=== PATIENT | male | born 1975 | race Hispanic/Latino ===

== ENCOUNTER 2020-08-20 20:28 | Emergency (ER) | payer BC ==
--- OUTSIDE RECORDS SUMMARY | 2020-08-20 20:31 | XMS REPORT | Continuity of Care Document ---
:1975 Author Organization [employer] Care Team Providers Name Role Phone [facility] Information [employer] Unavailable Un available Problems Problem Status Onset Classification Date Comments Sourc e Date Reported CERVICAL Active [place] [facility]ENOSIS [facility] M54.12 - Active [facility] "RADICULOPAT 7 [place] HY, CERVICAL REGION Obesity Active Problem 09/03/2017 [facility] (disorder) Neuro,[facility] Pain Active Problem 09/03/2017 [facility] (finding) [facility] Spinal Active Problem 09/03/2017 [facility] stenosis in Neuro, cervical [place] region Medical (disorder) Center Medications Medication Details Route Status Patient Ordering Order Source Instructions Provider Date Famotidine 20 MG 20 mg = 1 tab, Active 01/28[facility] Oral Tablet PO, BID, # 60 2017 Medica l [Pepcid] tab, 0 Refill(s) Center {21 See Active 01/28[facility] (Methylprednisolo Instructions, 2017 Medical ne 4 MG Oral PO, Take by [place] Tablet [Medrol]) mouth as } Pack [Medrol directed on Dosepak] label., # 1 Pack, 0 Refill(s) magnesium citrate 8.725 gm = 150 Active 01/28[facility] 58.2 MG/ML Oral ml, PO, ONCE, # 2017 Medical Solution 300 ml, 0 Center Refill(s) Cyclobenzaprine 10 mg = 1 tab, Active 01/28/ H [place] hydrochloride 10 PO, TID, X 14 2017 edical MG Oral Tablet day, # 42 tab, 0 Center [Flexeril] Refill(s) Docusate Sodium 100 mg = 1 cap, Active 01/28[facility] [place] 100 MG Oral PO, BID, PRN 2017 Medical Capsule [Colace] Constipation, # Center 60 cap, 0 Refill(s) ceFAZolin + Notes: (Same As: No Longer H [place] sodium chloride Ancef, Kefzol) Active 2016 M edical 0.9% INJ 100 mL Cefazolin FOR Center IV SET ONLY MEDICATION WASTE Product Size: 1000 mg Product Wasted: ___ mg dexamethasone Notes: No Longer [place] Concentration: Active 2017 Medical 4mg/ml Center Dexamethasone 4 mg, Route: Inactive [place] IVP, Q6H, Dosing 2016 Medical Weight 93.182, Center kg, Start date: 01/27/17 12:00:00 CDT, Duration: 1 day, Stop date: 01/28/17 6:00:00 CDT Naloxone 0.4 mg, Route: [place] IVP, Q2MIN, 2016 Medical Dosing Weight Center 93.182, kg, PRN Narcotic Reversal, Start date: 01/27/17 12:00:00 CDT, Duration: 8 doses or times, Stop date: Limited # of times Ondansetron 4 mg, Route: Inactive [place] IVP, ONCE, 2016 Medical Dosing Weight Center 93.182, kg, PRN Nausea & Vomiting, Start date: 01/27/17 12:00:00 CDT Oxycodone 5 mg, Route: PO, Inactive [place] Drug form: LIQ, 2017 Medical Q4H, Dosing Center Weight 93.182, kg, PRN Pain Score 7-10, Start date: 01/27/17 12:00:00 CDT, Duration: 30 day, Stop date: 02/26/17 11:59:00 CDT Labetalol 10 mg, Route: [place] IVP, Q5Min, 2016 Medical Dosing Weight Center 93.182, kg, PRN Elevated BP, Start date: 01/27/17 12:00:00 CDT, Duration: 5 doses or times, Stop date: Limited # of times esmolol 10 mg, Route: Inactive [place] IVP, Q5Min, 2016 Medical Dosing Weight Center 93.182, kg, PRN Other -See Comment, Start date: 01/27/17 12:00:00 CDT, Duration: 5 doses or times, Stop date: Limited # of times Hydralazine 10 mg, Route: [place]active [place] IVP, Q20Min, 2016 Medical Dosing Weight Center 93.182, kg, PRN Elevated BP, Start date: 01/27/17 12:00:00 CDT, Duration: 2 doses or times, Stop date: Limited # of times Hydromorphone 0.5 mg, Route: Inactive [place] IVP, Q5Min, 2016 Medical Dosing Weight Center 93.182, kg, PRN Pain Score 7-10, Start date: 01/27/17 12:00:00 CDT, Duration: 4 doses or times, Stop date: Limited # of times Metoprolol 1 mg, Route: [place] IVP, Q5Min, 2016 Medical Dosing Weight Center 93.182, kg, PRN Other -See Comment, Start date: 01/27/17 12:00:00 CDT, Duration: 5 doses or times, Stop date: Limited # of times Flumazenil 0.2 mg, Route: Inactive [place] IVP, PRN, Dosing 2017 Medical Weight 93.182, Center kg, PRN Benzodiazepine Reversal, Initial dose, Start date: 01/27/17 12:00:00 CDT, Duration: 30 day, Stop date: 02/26/17 11:59:00 CDT neostigmine Route: IV, Drug Inactive [facility] (ANES) form: INJ, ONCE, 2016 Medical Stop date: [place] 01/27/17 11:57:00 CDT ondansetron Route: IV, Drug Inactive [facility] (ANES) form: INJ, ONCE, 2016 Medical Stop date: [place] 01/27/17 11:57:00 CDT glycopyrrolate Route: IV, Drug Inactive [facility] (ANES) form: INJ, ONCE, 2016 Medical Stop date: [place] 01/27/17 11:57:00 CDT propofol (ANES) Route: IV, Drug Inactive [facility] form: INJ, ONCE, 2016 Medical Stop date: [place] 01/27/17 11:06:00 CDT ceFAZolin (ANES) Route: IV, Drug Inactive [facility] form: INJ, ONCE, 2016 Medical Stop date: [place] 01/27/17 11:06:00 CDT fentaNYL (ANES) Route: IV, Drug Inactive [place] form: INJ, ONCE, 2016 Medical Stop date: [place] 01/27/17 11:06:00 CDT dexamethasone Route: IV, Drug Inactive [facility] [place] (ANES) form: INJ, ONCE, 2016 Medical Stop date: [place] 01/27/17 11:06:00 CDT rocuronium (ANES) Route: IV, Drug Inactive 01/27 [place] form: INJ, ONCE, 2016 Medical Stop date: [place] 01/27/17 11:06:00 CDT lidocaine (ANES) Route: IV, Drug Inactive [place] form: INJ, ONCE, 2016 Medical Stop date: [place] 01/27/17 11:06:00 CDT midazolam (ANES) Route: IV, Drug Inactive [place] form: SOLN, 2016 Medical ONCE, Stop date: [place] 01/27/17 10:56:00 CDT acetaminophen Route: IV, Drug Inactive [facility] [place]eta (ANES) (ANES) form: INJ, Start 2016 edical date: 01/27/17 [place] 10:43:00 CDT, Stop date: 01/27/17 11:43:00 CDT LR 1000 mL INJ Route: IV, Total Inactive [place] (ANES) Volume: 1,000, 2016 Medical Start date: [place] 01/27/17 10:23:00 CDT, Stop date: 01/27/17 11:23:00 CDT Flexeril Notes: (Same As: No Longer [place] Flexeril) Active 2017 [facility] Robaxin 500 mg, Route: Inactive [place] PO, Drug form: 2017 Medical TAB, TID, Dosing Center Weight 93.182, kg, Start date: 01/27/17 9:00:00 CDT, Duration: 30 day, Stop date: 02/25/17 17:00:00 CDT Famotidine Notes: (Same as: No Longer [place] Pepcid) Can be Active 2017 Medical [facility] in 5-10 Center NS IVP: Slow IV push over at least 2 minutes. Docusate Sodium Notes: (Same as: No Longer 01/27 [place] 100 MG Oral Colace) (Do Not Active 2017 Medi lina Capsule Crush) Center Cefazolin /= 70kg, Start Inactive [place] as date: 01/27/172016 Medical 9:00:00 CDT, Center Duration: 1 day, Stop date: 01/28/17 1:00:00 CDT Dextrose 50% 12.5 gm, 25 mL, No Longer [facility] Syringe Route: IVP, Drug Active 2016 Medical Form: INJ, Center Dosing Weight 93.182, kg, PRN, PRN Blood Glucose Results, Start date: 01/27/17 8:54:00 CDT, Duration: 30 day, Stop date: 02/26/17 8:53:00 CDT Glucagon 1 mg, Route: IM, No Longer [place] Drug form: Active 2016 Medical PDR/INJ, PRN, [place] Dosing Weight 93.182, kg, PRN Blood Glucose Results, Start date: 01/27/17 8:54:00 CDT, Duration: 30 day, Stop date: 02/26/17 8:53:00 CDT Insulin regular 60 units) No Longer [place] WASTE: F/P - Active 2016 Medical Black; E - [place] Municipal Trash Bin Stable for 28 days at room temperature Expires in days from Da te phenol 5 MG/ML Notes: No Longer [facility] s Mucosal [place] Chloraseptic Active 2016 Medic al [place] (Same as: [place] Chloraseptic, Sore Throat [place]) WASTE: F/P - Black; E - Municipal Trash [facility] Acetaminophen 325 Notes: Do not No Longer [place] MG / Hydrocodone exceed 4gm/day Active 2017 Medical Bitartrate 10 MG of [place] Oral Tablet acetaminophen. [[place] 10/325] (Same as: [place] 325/10) Ondansetron Notes: (Same as: No Longer [facility] Zofran) Active 2017 Medical MEDICATION WASTE Center Product Size: 4 mg Product Wasted: ___ mg Sodium Chloride 1,000 mL, Rate: No Longer [place] 0.154 MEQ/ML 50 ml/hr, Infuse Active 2016 Me dical Injectable over: 20 hr, [place] Solution Route: IV, Dosing Weight 93.182 kg, Total Volume: 1,000, Start date: 01/27/17 8:51:00 CDT, Duration: 30 day, Stop date: 02/26/17 8:50:00 CDT Morphine Notes: (Same No Longer [facility] as:MORPhine Active [address] [place] [address] Sulfate) Center ceFAZolin Notes: Same as: No Longer [place] Ancef Active [address] [place] [address] bupivacaine Notes: (Same as: No Longer [facility] liposome Exparel) Active [address] [place] [address] NOT FOR IV Center use Postoperative analgesia: Infiltration (local): Dose is based on surgical site and volume required to cover the area (in general, the maximum total dose is 266 mg). Bunionectomy: 7 mL into the tissues surrounding the osteotomy and 1 mL into the subcutaneous tissue of the surgical site (total dose = 8 mL [106 mg]) Hemorrhoidectomy : 30 mL (20 mL vial diluted with 10 mL NS) divided and administered as 6 injections of 5 mL each (total dose = 30 mL [266 mg]) Fish Oil PO, Daily, 0 Active 01/26[facility] Refill(s) [address] [place] [address] Vitamin D3 CHEW, Daily, 0 Active 01/26[facility] Joao as Refill(s) [address] [place] [address] multivitamin Daily, 0 Active 01/26[facility] Refill(s) [address] [place] [address] Allergies, Adverse Reactions, Alerts Substance Category Reaction Severity Reaction Status Date Comments S ource type Reported sulfa drugs Assertion Drug Active Mi kennedy allergy Neuro Immunizations No Data Provided for This Section Results Order Name Results Value Reference Date Interpretation Comments Lizeth rce Range ELECTROLYTE AGAP 13.0 10.0 - 05/ [facility] S 20.0 [facility] ELECTROLYTE eGFR 114 01/26 Result [facility] S Comment: The Medical eGFR is Center calculated using the CKD-EPI formula. In most young, healthy individuals the eGFR will be >90 mL/min/1.73m2 . The eGFR declines with age. An eGFR of 60-89 may be normal in some populations, particularly the elderly, for whom the CKD-EPI formula has not been extensively validated. Use of the eGFR is not recommended in the following populations:< br/>
Emily viduals with unstable creatinine concentration s, including patients and those with serious co-morbid conditions.<b r/>
Patie nts with extremes in muscle mass or diet.

The data above are obtained from the National Kidney Disease Education Program (NKDEP) which additionally recommends that when the eGFR is used in patients with extremes of body mass index for purposes of drug dosing, the eGFR should be multiplied by the estimated BMI. ELECTROLYTE Calcium Lvl 9.6 8.5 - 10.5 01/26 [facility] xa [facility] ELECTROLYTE CO2 29 24 - 32 05 [facility] ELECTROLYTE Creatinine 0.72 0.50 - 01/26 [facility] S Lvl 1.40 /2016 [facility] ELECTROLYTE BUN 11 7 - 22 01/26 [facility] ELECTROLYTE Glucose Lvl 82 70 - 99 01/26 [facility] ELECTROLYTE Sodium Lvl 137 135 - 145 01/26 [facility] ELECTROLYTE Chloride Lvl 99 95 - 109 01/26 [facility] ELECTROLYTE Potassium 4.0 3.5 - 5.1 01/26 [facility] S Lvl [facility] HEMATOLOGY Eosinophils 1.1 0.0 - 4.0 / [facility] HEMATOLOGY Monocytes 10.0 2.0 - 12.0 / [facility] HEMATOLOGY Lymphocytes 39.5 20.0 - 01/26 [facility] 40.0 [facility] HEMATOLOGY Eosinophils 0.1 0.0 - 0.5 / [facility] # [facility] HEMATOLOGY Monocytes # 0.7 0.0 - 0.8 01/26 [facility] s [facility] HEMATOLOGY Lymphocytes 2.6 1.0 - 5.5 / [facility] HEMATOLOGY Segs-Bands # 3.2 1.5 - 8.1 01/26 [facility] HEMATOLOGY Basophils 0.6 0.0 - 1.0 / [facility] HEMATOLOGY Segs 48.8 45.0 - / [facility] 75.0 [facility] HEMATOLOGY Coag Index 0.7 -3.0-3.0 - / [facility] 3.0 [facility] HEMATOLOGY Max Amp 58.5 50.0 - 05/ [place] 70.0 [facility] HEMATOLOGY TEG Data See Note 01/26 [facility] (01/26/17 1:35 PM) [facility] HEMATOLOGY G-value 7.0 4.5 - 11.0 01/26 [facility] HEMATOLOGY Ly30 0.1 0.0 - 7.5 01/26 [facility] HEMATOLOGY R-time 5.0 5.0 - 10.0 01/26 [facility] HEMATOLOGY Angle 67.8 53.0 - 01/26 [place] 72.0 [facility] HEMATOLOGY K-time 1.6 1.0 - 3.0 01/26 [facility] HEMATOLOGY TEG Interp Thromboelas 01/26 Joao as togra Medical results are Center essentially within reference ranges. CPT:03652 HEMATOLOGY MPV 9.7 7.4 - 10.4 01/26 [facility] HEMATOLOGY MCH 30.9 27.0 - 01/26 31.0 [facility] HEMATOLOGY MCV 89.6 80.0 - 01/26 94.0 [facility] HEMATOLOGY Hct 49.0 42.0 - 01/26 [place] 54.0 [facility] HEMATOLOGY Platelet 176 133 - 450 01/26 [facility] HEMATOLOGY RDW 13.2 11.5 - 01/26 14.5 [facility] HEMATOLOGY MCHC 34.5 32.0 - 01/26 36.0 [facility] HEMATOLOGY Hgb 16.9 14.0 - 01/26 18.0 [facility] HEMATOLOGY WBC 6.6 3.7 - 10.4 01/26 [facility] HEMATOLOGY RBC 5.47 4.70 - 01/26 [place] 6.10 [facility] SPECIAL Hgb A1C 5.6 <=5.6 % 01/26 [facility] CHEMISTRY [facility] Pathology Reports No Data Provided for This Section Diagnostic Reports Report Value Date Source Spine cervical wo PROCEDURE: CERVICAL SPINE MAGNETIC RESON ANCE IMAGING 01/11/2017 [facility] contrast MRI CLINICAL INDICATION: M54.2. Cervicalgia. COMPARISON: None. TECHNIQUE: Unenhanced axial and sagittal MR images of the cervical spine were performed. FINDINGS: There is straighte harley of the normal cervical lordosis. There is slight curvature of the cervical spine. The marrow signal is within normal limits. There is no significant disc space narrowing. The discs are hydrated. The cervical spinal cord dem onstrates normal signal intensity without a demonstrable lesion, myelomalacia or syrinx. There is no significant abnormality of the visualized cervical soft tissues. Craniocervical junction: No significant abnormality. No cerebellar tonsillar herniation. C2-C3: Facet arthropathy. Mi ld thickening of the ligamentum flavum. Severe right foraminal narrowing. Moderate left foraminal narrowing. No significant spinal stenosis. C3-C4: Broad-based posterior disc bulge/protrusion measuring a maximal AP dimension of approximately 2 mm. Uncal vertebral joint hypertrophy. Facet arthropathy. Moderate to severe bilateral foraminal na rrowing most pronounced medially. Mild spinal st enosis. C4-C5: Posterior central and bilateral paracentral disc protrusion most pronounced centrally and in the right paracentral region measuring a maximal AP dimension of approximately 4 mm with an annular fi ssure indenting and slightly deforming the cervical spinal cord. Uncal vertebral joint hypertrophy. Facet arthropathy. Severe right foraminal narrowing. Moderate left foraminal narrowing. Moderate spinal stenosis. C5-C6: Broad-based posterior disc bulge/protrusion more pronounced on the right measuring a maximal AP dimension of approximately 3 to 4 mm with an annular fissure. Uncal vertebral joint hypertrophy. Mo derate to severe right edson inal narrowing most pronounced medially. Moderate narrowing of the medial aspect of the left neural foramen. Moderate spinal stenosis. C6-C7: Right posterior parac entral disc protrusion measuring a maximal AP dimension of approximately 3 mm with inferior disc extrusion adjacent to the posterior margin of C7 measuring approximately 3 mm superior to inferior by 3 m m AP. Mild to moderate right foraminal narrowing most pronounced medially. Mild left foraminal narrowing. Mild spinal stenosis. C7-T1: Posterior central and right paracentral disc protrusion measuring a maximal AP dimension of approximately 3 mm. Facet arthropathy. Mild bilateral foraminal narrowing. Mild spinal stenosis. IMPRESSION: 1. Straightening of the norm al lordosis and slight curvature of the cervical spine. 2. Multilevel posterior disc bulging/protrusions, uncal vertebral joint hypertrophy, facet arthropathy, foraminal narrowing and spinal stenosis as described above. There is a right posterior paracentral inferior disc extrusion at C6-C7. 3. The cervical spinal cord demonstrates normal signal intensity. SL: 15 Consultation Notes No Data Provided for This Section Discharge Summaries No Data Provided for This Section History and Physicals No Data Provided for This Section Vital Signs Vital Sign Value Date Comments Source Respitory Rate 18 01/28/2017 [facility] Temperature Oral (F) 97.9 F 01/28/2017 [facility] Heart Rate 93 01/28/[address] [facility] Center Systolic (mm Hg) 128 01/28/2017 [facility] dical Center Diastolic (mm Hg) 85 01/28/2017 [facility] Temperature Oral (F) 97.5 F 01/28/2017 [facility] Systolic (mm Hg) 136 01/28/2017 [facility] dical Center Diastolic (mm Hg) 82 01/28/2017 [facility] Respitory Rate 16 01/28/2017 [facility] Heart Rate 92 01/28/2017 [facility] Respitory Rate 18 01/28/2017 [facility] Systolic (mm Hg) 135 01/28/2017 [facility] dical Center Diastolic (mm Hg) 76 01/28/2017 [facility] Temperature Oral (F) 98.0 F 01/28/2017 [facility] Heart Rate 96 01/28/2017 [facility] Weight 93.182 01/27/2017 [facility] Weight 93.182 01/27/2017 [facility] Height 172.72 cm 01/27/2017 [facility] BMI Calculated 31.24 01/27/2017 [facility] BMI Calculated 31.54 01/26/2017 [facility] Weight 94.091 01/26/2017 [facility] Height 172.72 cm 01/26/2017 [facility] Encounters Location Location Encounter Encounter Reason Attending ADM DC Stat us Source Details Type Number For Provider Date Date Visit [facility] Outpt Diag [id number] Jimmy 01/11 01/12 [facility] Iman Mosher [facility]2016 [facility] [id number] MICKEY BENSON 01/19 [facility] [place] [facility] [id number] MICKEY BENSON 01/27 Act zaida [facility] Bedded [id number] Mickey Benson 01/27 01/28 [facility] Outpatient /2016 [facility] Outpatient [id number] OLLIE 02/10 [facility] [place] [facility] [id number] MICKEY CANDACE 05/09 Act zaida [facility] [id number] MICKEY BENSON 08/15 Act zaida [facility] [id number] Mickey Benson 08/15 08/15 [facility] Pre[facility]Reg /2016 [facility] Phone [id number] 08/30 09/01 [facility] Message /2016 Neuro Procedures Procedure Code Date Perfomer Comments Source Fusion of joint of [id number] 01/27/2017 [facility] cervical spine with internal fixation by anterior approach [facility] [id number] [facility] [id number] [facility] Assessment and Plan No Data Provided for This Section Plan of Care No Data Provided for This Section Social History Social History Date Source Social History TypeResponse 05/09/2017 [facility] Smoking Status Never smoker; Type: Cigars; Exposure to Tobacco Smoke None; Cigarette Smoking Last 365 Days No; Reg Smoking Cessation Counseling No Social History TypeResponse 01/27/2017 [facility] Smoking Status Never smoker; Exposure to Tobacco Smoke None; Cigarette Smoking Last 365 Days No; Reg Smoking Cessation Counseling No No data available for this 01/12/2017 LANI Salazar and section Family History No Data Provided for This Section Advance Directives No Data Provided for This Section Functional Status No Data Provided for This Section
[2020-08-20 21:15] LABS: Absolute Lymphocytes (CBC) 2.3 K/uL (0.7-4.9); Basophils % 0.8 % (0-1.3); Hematocrit 42.6 % (39.6-49.0); Lymphocytes % 29.9 % (15.3-44.8); MPV 9.2 fL (7.6-11.3); RBC Red Blood Cell Count 4.71 M/uL (4.33-5.43)
[2020-08-20 21:17] LABS: Protime INR 1.05
[2020-08-20 21:36] LABS: ALT/SGPT 38 U/L (12-78); AST/SGOT 22 U/L (15-37); Alkaline Phosphatase 63 U/L (45-117); BUN Blood Urea Nitrogen 13 mg/dL (7-18); Bicarbonate 27 mmol/L (21-32); Bilirubin Direct 0.1 mg/dL (0-0.2); Bilirubin Total 0.4 mg/dL (0.2-1.0); Glucose Level 99 mg/dL (74-106); Magnesium 2.3 mg/dL (1.8-2.4); NT PRO-BNP 13 pg/mL (<125); Potassium 3.4 mmol/L (3.5-5.1); Sodium Level 141 mmol/L (136-145); Troponin (Emerg Dept Use Only) < 0.02 ng/mL (0.0-0.045)
[2020-08-20] MEDS ORDERED: KETOROLAC 30 MG/ML INJ ONE (21:59)
--- NOTE | 2020-08-20 23:41 | ER ---
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 ll1 Slight SOB. No cough or fever. States he has been stressed out lately, and moving a lot. Coronavirus screen: Client denies travel out of the [place] in the last 14 days. At this time, the client does not indicate any symptoms associated with coronavirus-19. Ebola Screen: Patient denies travel to an Ebola-affected area in the 21 days before illness onset. Initial Sepsis Screen: Does the patient meet any 2 criteria? No. Patient's initial sepsis screen is negative. Does the patient have a suspected source of infection? No. Patient's initial sepsis screen is negative. Risk Assessment: Do you want to hurt yourself or someone else? Patient reports no desire to harm self or others. Onset of symptoms was August 20, 2020. 20:38 Method Of Arrival: Ambulatory ll1 20:38 Acuity: MARIELENA 3 ll1 Historical: - Allergies: 20:40 Sulfa (Sulfonamide Antibiotics); ll1 - PSHx: 20:40 Appendectomy; ll1 20:41 nec k sx- C6-8; ll1 - Immunization history:: Flu vaccine is not up to date. - Social history:: Smoking status: Patient denies any tobacco usage or history of. Screenin:05 Abuse screen: Denies threats or abuse. Denies injuries from another. Nutritional rv screening: No deficits noted. Tuberculosis screening: No symptoms or risk factors identified. Fall Risk None identified. Assessment: 21:03 General: Appears comfortable, Behavior is calm, cooperative. Pain: Pain radiates to rv chest Quality of pain is described as pressure, Pain began suddenly. Neuro: Level of Consciousness is awake, alert, obeys commands, Oriented to person, place, time, situation. Cardiovascular: Patient's skin is warm and dry. Rhythm is sinus rhythm. Respiratory: Airway is patent. 21:47 Reassessment: Pain reassessed, Pt stating he is not in pain and that pain eased up. Pt wh refusing pain medicine for now. 23:05 Reassessment: Patient appears in no apparent distress at this time. Patient and/or wh family updated on plan of care and expected duration. Pain level reassessed. Patient is alert, oriented x 3, equal unlabored respirations, skin warm/dry/pink. 23:53 Reassessment: Patient appears in no apparent distress at this time. Patient and/or wh family updated on plan of care and expected duration. Pain level reassessed. Patient is alert, oriented x 3, equal unlabored respirations, skin warm/dry/pink. Vital Signs: 20:38 BP 135 / 93; Pulse 72; Resp 18; Temp 99.3; Pulse Ox 99% on R/A; Weight 86.18 kg; Height ll1 5 ft. 8 in. (172.72 cm); Pain 5/10; 22:00 BP 124 / 83; Pulse 68; Resp 18; Pulse Ox 98% on R/A; wh 23:30 BP 130 / 92; Pulse 67; Resp 16; Pulse Ox 98% on R/A; wh 20:38 Body Mass Index 28.89 (86.18 kg, 172.72 cm) ll1 ED Course: 20:30 Patient arrived in ED. cl3 20:38 Vance De La Cruz MD is Attending Physician. tw4 20:39 Triage completed. ll1 20:39 Arm band placed on Patient placed in an exam room, on a stretcher. ll1 20:41 Meron Regan is Primary Nurse. 21:00 Inserted saline lock: 20 gauge in right antecubital area, using aseptic technique. rv Blood collected. 21:00 Initial lab(s) drawn, by me, sent to lab. EKG done, by ED staff, reviewed by Vance De La Cruz MD. 21:02 Evert Babcock, SANNA is Primary Nurse. rv 21:06 Patient has correct armband on for positive identification. Bed in low position. Call rv light in reach. Side rails up X 1. metal pattern maker on. Pulse ox on. NIBP on. 21:06 Patient maintains SpO2 saturation greater than 95% on room air. rv 21:09 XRAY Chest (1 view) In Process Unspecified. EDMS 23:55 No provider procedures requiring assistance completed. IV discontinued, intact, wh bleeding controlled, No redness/swelling at site. Administered Medications: 23:53 Not Given (Patient Refused): TORadol 30 mg IVP once Outcome: 23:40 Discharge ordered by . tw4 23:55 Discharged to home ambulatory. 23:55 Condition: stable 23:55 Discharge instructions given to patient, Instructed on discharge instructions, follow up and referral plans. POC Demonstrated understanding of instructions, follow-up care, POC 23:55 Patient left the ED. Signatures: Dispatcher [employer] EDMS Meron Regan Vance De La Cruz MD MD tw4 Evert Babcock, RN RN Foreign Lombardo 3 Grazyna Mendenhall RN RN ll1 Corrections: (The following items were deleted from the chart) 23:55 23:15 BP 130 / 92; Pulse 67bpm; Resp 16bpm; Pulse Ox 98% RA; [facility]
--- NOTE | 2020-08-20 23:41 | EDPHYS ---
Physician Documentation [facility] Name: Zhen Nuñez Age: 45 yrs Sex: Male : 1975 Arrival Date: 08/20/2020 Time: 20:30 Bed 2 Private MD: ED Physician Vance De La Cruz HPI: 08/20 21:27 This 45 yrs old Male presents to ER via Ambulatory with complaints of Chest tw4 Pain. 21:27 The patient or guardian reports chest pain that is located primarily in the anterior tw4 chest wall. Onset: just prior to arrival, today. The pain does not radiate. Associated signs and symptoms: The patient has no apparent associated signs or symptoms. The chest pain is described as dull. Duration: The patient or guardian reports a single episode. Severity of pain: At its worst the pain was moderate in the emergency department the pain is unchanged. The patient has not experienced similar symptoms in the past. Historical: - Allergies: 20:40 Sulfa (Sulfonamide Antibiotics); ll1 - PSHx: 20:40 Appendectomy; ll1 20:41 nec k sx- C6-8; ll1 - Immunization history:: Flu vaccine is not up to date. - Social history:: Smoking status: Patient denies any tobacco usage or history of. ROS: 21:27 Constitutional: Negative for fever, chills, and weight loss, Eyes: Negative for injury, tw4 pain, redness, and discharge, Respiratory: Negative for shortness of breath, cough, wheezing, and pleuritic chest pain, Abdomen/GI: Negative for abdominal pain, nausea, vomiting, diarrhea, and constipation, Back: Negative for injury and pain, MS/Extremity: Negative for injury and deformity, Skin: Negative for injury, rash, and discoloration, Neuro: Negative for headache, weakness, numbness, tingling, and seizure. 21:27 Cardiovascular: Positive for chest pain, Negative for edema, orthopnea, palpitations, paroxysmal nocturnal dyspnea. Exam: 21:27 Constitutional: This is a well developed, well nourished patient who is awake, alert, tw4 and in no acute distress. Head/Face: Normocephalic, atraumatic. Chest/axilla: Normal chest wall appearance and motion. Nontender with no deformity. No lesions are appreciated. Cardiovascular: Regular rate and rhythm with a normal S1 and S2. No gallops, murmurs, or rubs. Normal PMI, no JVD. No pulse deficits. Respiratory: Lungs have equal breath sounds bilaterally, clear to auscultation and percussion. No rales, rhonchi or wheezes noted. No increased work of breathing, no retractions or nasal flaring. Abdomen/GI: Soft, non-tender, with normal bowel sounds. No distension or tympany. No guarding or rebound. No evidence of tenderness throughout. Skin: Warm, dry with normal turgor. Normal color with no rashes, no lesions, and no evidence of cellulitis. MS/ Extremity: Pulses equal, no cyanosis. Neurovascular intact. Full, normal range of motion. Neuro: Awake and alert, GCS 15, oriented to person, place, time, and situation. Cranial nerves II-XII grossly intact. Motor strength 5/5 in all extremities. Sensory grossly intact. Cerebellar exam normal. Normal gait. Vital Signs: 20:38 BP 135 / 93; Pulse 72; Resp 18; Temp 99.3; Pulse Ox 99% on R/A; Weight 86.18 kg; Height ll1 5 ft. 8 in. (172.72 cm); Pain 5/10; 22:00 BP 124 / 83; Pulse 68; Resp 18; Pulse Ox 98% on R/A; wh 23:30 BP 130 / 92; Pulse 67; Resp 16; Pulse Ox 98% on R/A; wh 20:38 Body Mass Index 28.89 (86.18 kg, 172.72 cm) 1 MDM: 20:39 Patient medically screened. [facility] 21:27 Data reviewed: vital signs, nurses notes. Counseling: I had a detailed discussion with [facility] the patient and/or guardian regarding: the historical points, exam findings, and any diagnostic results supporting the discharge/admit diagnosis. 08/20 20:39 Order name: Basic Metabolic Panel; Complete Time: 23:26 [facility] 08/20 23:26 Interpretation: Normal except: K 3.4. [facility] 08/20 20:39 Order name: CBC with Diff; Complete Time: 21:29 [facility] 08/20 21:29 Interpretation: Normal except: PLT 136. [facility] 08/20 20:39 Order name: LFT's; Complete Time: 23:26 tw08/20 23:26 Interpretation: Normal except: A/G 1.0; GLOB 4.0. 08/20 20:39 Order name: Magnesium; Complete Time: 23:26 [facility] 08/20 23:26 Interpretation: Normal except: MG 2.3. 08/20 20:39 Order name: NT PRO-BNP; Complete Time: 23:26 08/20 23:26 Interpretation: Normal except: NT PRO-BNP 13. 08/20 20:39 Order name: PT-INR; Complete Time: 23:26 08/20 23:27 Interpretation: Normal except: PT 12.4. 08/20 20:39 Order name: Troponin (emerg Dept Use Only); Complete Time: 23:26 [facility] 08/20 23:27 Interpretation: Within normal limits: TROPED < 0.02. 08/20 20:39 Order name: XRAY Chest (1 view) 08/20 20:39 Order name: EKG; Complete Time: 20:39 [facility] 08/20 20:39 Order name: Cardiac monitoring; Complete Time: 21:02 08/20 20:39 Order name: EKG - Nurse/Tech; Complete Time: 21:02 [facility] 08/20 20:39 Order name: IV Saline Lock; Complete Time: 21: 08/20 22:04 Order name: Troponin (emerg Dept Use Only); Complete Time: 23:26 08/20 23:37 Interpretation: Within normal limits: TROPED < 0.02. 08/20 20:39 Order name: Labs collected and sent; Complete Time: 21:03 08/20 20:39 Order name: O2 Per Protocol; Complete Time: 21:03 08/20 20:39 Order name: O2 Sat Monitoring; Complete Time: 21: EC:27 Rate is 68 beats/min. Rhythm is regular. QRS [place] is Normal. AR interval is normal. QRS tw4 interval is normal. QT interval is normal. No Q waves. T waves are Normal. No ST changes noted. Clinical impression: Normal ECG. Interpreted by me. Reviewed by me. Administered Medications: 23:53 Not Given (Patient Refused): TORadol 30 mg IVP once wh Disposition: 08/20/20 23:40 Discharged to Home. Impression: Other chest pain. - Condition is Stable. - Discharge Instructions: Nonspecific Chest Pain, Pain Without a Known Cause, Chest Pain Observation. - Medication Reconciliation Form, Thank You Letter, Antibiotic Education, Prescription Opioid Use form. - Follow up: Private Physician; When: Upon discharge from the Emergency Department; Reason: Recheck today's complaints, Continuance of care, Re-evaluation by your physician. - Problem is new. - Symptoms have improved. Signatures: Dispatcher [employer] EDMN Meron Regan Terrence, MD MD tw4 Grazyna Mendenhall RN RN ll1 Corrections: (The following items were deleted from the chart) 23:55 23:40 08/20/2020 23:40 Discharged to Home. Impression: Other chest pain. Condition is wh Stable. Forms are Medication Reconciliation Form, Thank You Letter, Antibiotic Education, Prescription Opioid Use. Follow up: Private Physician; When: Upon discharge from the Emergency Department; Reason: Recheck today's complaints, Continuance of care, Re-evaluation by your physician. Problem is new. Symptoms have improved. tw4
[2020-08-21 04:26] VITALS: TEMP 99.3
[2020-08-21 04:28] VITALS: O2SAT 98
[2020-08-21 04:30] VITALS: BP 130/92
--- NOTE | 2020-08-21 10:19 | RAD REPORT ---
EXAM DESCRIPTION: [facility] Single View08/20/2020 9:11 pm CLINICAL HISTORY: Chest pain COMPARISON: none FINDINGS: The lungs appear clear of acute infiltrate. The heart is normal size IMPRESSION: No acute abnormalities displayed
== END 2020-08-20 23:55 | disposition home or self-care (01) ==
LOC: ER 20:28
DX: R07.89 Other chest pain (principal); Z88.2 Allergy status to sulfonamides
CPT/HCPCS: 36415; 71045; 80048; 80076; 83735; 83880; 84484; 85025; 85610; 93005; 99285

== ENCOUNTER → 2023-12-12 | Emergency (ER) | payer BC, SELFPAY ==
[~2023-12-12] MED LIST: ASPIRIN 81 MG CHEWABLE TABLET ONE
[2023-12-12 19:06] LABS: Absolute Basophils 0.1 K/uL (0-0.5); Absolute Eosinophils 0.2 K/uL (0-0.5); Absolute Lymphocytes (CBC) 1.8 K/uL (0.7-4.9); Absolute Monocytes 0.7 K/uL (0.1-1.3); Basophils % 1.2 % (0-1.3); Eosinophils % 1.7 % (0-4.4); Hemoglobin 14.3 g/dL (13.6-17.9); Lymphocytes % 21.1 % (15.3-44.8); MCH 32.1 pg (27.0-35.0); MCHC 34.9 g/dL (32.0-36.0); MCV 91.8 fL (80-100); MPV 9.2 fL (7.6-11.3); Monocytes % 8.1 % (3.3-12.3); Neutrophils % 67.9 % (41.7-73.7); Nucleated Red Blood Cells % 0.2 % (0-0); Platelets 310 thou/uL (152-406); RBC Red Blood Cell Count 4.47 M/uL (4.33-5.43); Red Cell Distribution Width 12.8 % (12.1-15.2)
[2023-12-12 19:14] LABS: PT Prothrombin Time 11.5 SECONDS (9.5-12.5); Protime INR 1.05
--- NOTE | 2023-12-12 19:33 | RAD REPORT ---
[facility] CLINICAL HISTORY: CHEST PAIN COMPARISON: Chest Single View dated 08/20/2020 TECHNIQUE: Portable AP view of the chest. FINDINGS: The lungs are clear. No pneumothorax or effusion. The cardiomediastinal contours are unre markable. IMPRESSION: No acute cardiopulmonary process.
[2023-12-12 19:34] LABS: Albumin 4.2 g/dL (3.4-5.0); Albumin/Globulin Ratio 0.9 (1.1-1.8); Anion Gap 11.4 mEq/L (5.0-15.0); Bilirubin Direct 0.2 mg/dL (0-0.2); Bilirubin Indirect, Calculated 0.3 mg/dL (0.2-0.8); Bilirubin Total 0.5 mg/dL (0.2-1.0); Globulin 4.5 g/dL (2.3-3.5); Magnesium 2.2 mg/dL (1.6-2.4); Potassium 3.4 mEq/L (3.5-5.1); Protein, Total 8.7 g/dL (6.4-8.2); Troponin High Sensitivity 4.6 pg/mL (<58.9)
--- NOTE | 2023-12-12 19:46 | RAD REPORT ---
EXAM DESCRIPTION: CT - Head Brain Wo Cont - 12/12/2023 7:37 pm CLINICAL HISTORY: NUMBNESS COMPARISON: No comparisons TECHNIQUE: Noncontrast head CT images ad were obtained without IV contrast. Multiplanar reformats we re generated and reviewed. All CT scans are performed using dose optimization technique as appropriate and may include automated exposure control or mA/KV adjustment according to patient size. FINDINGS: No intracranial hemorrhage, mass, or edema. Midline structures are unremarkable. Normal ventricular caliber for age. Noel-white matter differentiation is preserved, without evidence of acute infarct. No abnormal extra- axial fluid collections. Mastoid air cells and visualized portions of the paranasal sinuses are clear. No acute bony findings. IMPRESSION: No evidence of an acute intracranial process.
--- NOTE | 2023-12-12 19:49 | EDPHYS ---
Physician Documentation [facility] Name: Marco Antonio Mariano Age: 40 yrs Sex: Male : 10/28/1983 Arrival Date: 12/12/2023 Time: 18:28 Bed 8 Private MD: ED Physician Wali Medellin HPI: 12/11 19:06 This 40 yrs old Male presents to ER via Ambulatory with complaints of Chest sb4 Pain > 30 y/o, Numbness Of Arm. 19:06 Patient states that about 7 hours ago, he started experiencing pressure in his chest sb4 and felt like the left side of his body was falling asleep. He denies any prior episodes. He denies any chronic medical conditions. He states his symptoms have now resolved, they are transient. Historical: - Allergies: 18:56 Sulfa (Sulfonamide Antibiotics); ll1 - PMHx: 18:56 None; ll1 - PSHx: 18:56 None; ll1 - Immunization history:: Adult Immunizations up to date. - Social history:: Smoking status: Patient denies any tobacco usage or history of. ROS: 19:06 Constitutional: Negative for fever, chills, and weight loss, sb4 19:06 Cardiovascular: Positive for chest pain, 19:06 Skin: 19:06 Neuro: Positive for numbness, of the left arm and left leg, 19:06 All other systems are negative, Exam: 19:06 Constitutional: This is a well developed, well nourished patient who is awake, alert, sb4 and in no acute distress. Head/Face: Normocephalic, atraumatic. Eyes: Extra-ocular motions intact. Periorbital areas with no swelling, redness, or edema. ENT: Mucous membranes moist. Cardiovascular: Regular rate and rhythm with a normal S1 and S2. Respiratory: Lungs have equal breath sounds bilaterally, clear to auscultation and percussion. No rales, rhonchi or wheezes noted. No increased work of breathing, no retractions or nasal flaring. Abdomen/GI: Soft, non-tender, no distension. Skin: Warm, dry with normal turgor. Normal color with no rashes, no lesions, and no evidence of cellulitis. MS/ Extremity: Pulses equal, no cyanosis. Neurovascular intact. Full, normal range of motion. Neuro: Awake and alert, GCS 15, oriented to person, place, time, and situation. Motor strength 5/5 in all extremities. Sensory grossly intact. 19:51 Special observations: no evidence of discomfort, sb4 Vital Signs: 19:10 BP 131 / 101; Pulse 76; Resp 17; Temp 98.3; Pulse Ox 100% ; Pain 10/10; ll1 19:12 Pulse 78; Resp 17; Pulse Ox 99% on R/A; ll1 19:30 BP 134 / 89; Pulse 76; Resp 16; Pulse Ox 99% on R/A; cm10 19:51 BP 134 / 89; sb4 20:00 BP 146 / 94; Pulse 77; Resp 16; Pulse Ox 100% on R/A; cm10 19:10 Pain Scale: Adult ll1 MDM: 18:33 Patient medically screened. sb4 19:35 The patient was given aspirin in the Emergency Department. Scoring Tools HEART Score: sb4 History: ECG: Age: Risk Factors: No Risk Factors Known (0), Troponin: Total Score = 0. 19:49 Data reviewed: vital signs, nurses notes, lab test result(s), EKG, radiologic studies, sb4 I have discussed the patient's presentation/case with the attending Emergency Department Physician; and as a result, I will discharge patient. Consideration of Admission/Observation Escalation of care including admission/observation considered. Counseling: I had a detailed discussion with the patient and/or guardian regarding the historical points, exam findings, and any diagnostic results supporting the discharge/admit diagnosis, lab results, radiology results, the need for outpatient follow up, a patient care, to return to the emergency department if symptoms worsen or persist or if there are any questions or concerns that arise at home. 12/11 18:39 Order name: Basic Metabolic Panel; Complete Time: 19:35 sb4 12/11 18:39 Order name: CBC with Diff; Complete Time: 19:09 sb4 12/11 18:39 Order name: LFT's; Complete Time: 19:35 sb4 12/11 18:39 Order name: Magnesium; Complete Time: 19:35 sb4 18 18:39 Order name: NT PRO-BNP; Complete Time: 19:35 sb4 12/11 18:39 Order name: PT-INR; Complete Time: 19:14 sb4 12/11 18:39 Order name: Troponin HS; Complete Time: 19:35 sb4 12/11 18:39 Order name: XRAY Chest (1 view); Complete Time: 19:34 sb4 12/11 19:05 Order name: Head Brain Wo Cont CT; Complete Time: 19:48 sb4 12/11 18:39 Order name: EKG; Complete Time: 18:39 sb4 12/11 18:39 Order name: Cardiac monitoring; Complete Time: 18:56 sb4 12/11 18:39 Order name: EKG - Nurse/Tech; Complete Time: 18:56 sb4 12/11 18:39 Order name: IV Saline Lock; Complete Time: 18:43 sb4 12/11 18:39 Order name: Labs collected and sent; Complete Time: 18:43 sb4 12/11 18:39 Order name: O2 Per Protocol; Complete Time: 18:43 sb4 12/11 18:39 Order name: O2 Sat Monitoring; Complete Time: 18:43 sb4 EC:57 Rate is 74 beats/min. Rhythm is regular, Normal Sinus Rhythm. AL interval is normal at sb4 154 msec. QRS interval is normal at 92 msec. QT interval is normal at 412 msec. No Q waves. T waves are Normal. No ST changes noted. Clinical impression: Normal ECG and No evidence of ischemia. Interpreted by me. Reviewed by me. Administered Medications: 19:30 Drug: Aspirin PO Chewable Tablet 324 mg PO once; 81 mg tablets x 4 Route: PO; cm10 20:16 Follow up: Response: No adverse reaction cm10 Disposition Summary: 12/12/23 19:49 Discharge Ordered Notes: Location: Home sb4 Problem: new sb4 Symptoms: have improved sb4 Condition: Stable sb4 Diagnosis - Chest pain, unspecified sb4 Followup: sb4 - With: Shaka [place] MD - When: 2 - 3 days - Reason: Further diagnostic work-up, Recheck today's complaints, Re-evaluation by your physician Discharge Instructions: - Discharge Summary Sheet sb4 - Nonspecific Chest Pain, Adult, [id number] sb4 Forms: - Thank You Letter sb4 - Patient Portal Instructions sb4 - Leadership Thank You Letter sb4 Addendum: 12/14/2023 14:26 I was immediately available for consultation during this patient's visit. I did not e c2 personally see the patient or discuss the patient with the CHERI. . Signatures: Dispatcher [employer] Grazyna Byrnes RN RN ll1 Florina Arizmendi PA-C PA-C sb4 Lindsey Whitaker RN RN cm10 Wali Medellin MD MD ec2
--- NOTE | 2023-12-12 19:49 | ER ---
Nurse's Notes [facility] Name: Marco Antonio Mariano Age: 40 yrs Sex: Male : 10/28/1983 Arrival Date: 12/12/2023 Time: 18:28 Bed 8 Private MD: Diagnosis: Chest pain, unspecified Presentation: 12/11 18:56 Coronavirus screen: Client denies travel out of the [place] in the last 14 days. At this ll1 time, the client does not indicate any symptoms associated with coronavirus-19. Ebola Screen: Patient denies travel to an Ebola-affected area in the 21 days before illness onset. Initial Sepsis Screen: Does the patient meet any 2 criteria? No. Patient's initial sepsis screen is negative. Does the patient have a suspected source of infection? No. Patient's initial sepsis screen is negative. Risk Assessment: Do you want to hurt yourself or someone else? Patient reports no desire to harm self or others. 18:56 Method Of Arrival: Ambulatory ll1 18:56 Acuity: MARIELENA 3 ll1 19:10 Chief complaint: Patient states: CP and RLQ abd pain. ll1 19:10 Onset of symptoms was December 12, 2023. ll1 Historical: - Allergies: 18:56 Sulfa (Sulfonamide Antibiotics); ll1 - PMHx: 18:56 None; ll1 - PSHx: 18:56 None; ll1 - Immunization history:: Adult Immunizations up to date. - Social history:: Smoking status: Patient denies any tobacco usage or history of. Screenin:11 [facility] ED Fall Risk Assessment (Adult) History of falling in the last 3 months, ll1 including since admission No falls in past 3 months (0 pts) Confusion or Disorientation No (0 pts) Intoxicated or Sedated No (0 pts) Impaired Gait No (0 pts) Mobility Assist Device Used No (0 pt) Altered Elimination No (0 pt) Score/Fall Risk Level 0 - 2 = Low Risk Maintained a safe environment, Hourly rounding (assess needs \T\ fall precautionary measures) done. Abuse screen: Denies threats or abuse. Nutritional screening: No deficits noted. Tuberculosis screening: No symptoms or risk factors identified. 19:31 [facility] ED Fall Risk Assessment (Adult) History of falling in the last 3 months, cm10 including since admission No falls in past 3 months (0 pts) Confusion or Disorientation No (0 pts) Intoxicated or Sedated No (0 pts) Impaired Gait No (0 pts) Mobility Assist Device Used No (0 pt) Altered Elimination No (0 pt) Score/Fall Risk Level 0 - 2 = Low Risk Oriented to surroundings, Maintained a safe environment, Hourly rounding (assess needs \T\ fall precautionary measures) done. Assessment: 18:57 General: Appears in no apparent distress. Behavior is calm, cooperative, appropriate ll1 for age. Pain: Complains of pain in chest Quality of pain is described as aching. Cardiovascular: Reports chest pain. 19:12 Pain: Pain does not radiate. Pain began 7 hours ago. ll1 19:30 General: Appears in no apparent distress. comfortable, Behavior is calm, cooperative, cm10 appropriate for age. Pain: Complains of pain in abdomen and chest Pain does not radiate. Quality of pain is described as aching, Pain began suddenly, at noon. Neuro: No deficits noted. Level of Consciousness is awake, alert, obeys commands, Oriented to person, place, time, situation. Cardiovascular: No deficits noted. Reports chest pain, since Noon Capillary refill < 3 seconds Patient's skin is warm and dry. Chest pain is described as mild. Respiratory: No deficits noted. Airway is patent Respiratory effort is even, unlabored, Respiratory pattern is regular, symmetrical, Breath sounds are clear bilaterally. Derm: No deficits noted. Skin is intact, Skin is pink, warm \T\ dry. Musculoskeletal: No deficits noted. No signs and/or symptoms reported regarding the musculoskeletal system. Range of motion: intact in all extremities. 19:31 Neuro: Reports dizziness, since Noon. cm10 Vital Signs: 19:10 BP 131 / 101; Pulse 76; Resp 17; Temp 98.3; Pulse Ox 100% ; Pain 10/10; ll1 19:12 Pulse 78; Resp 17; Pulse Ox 99% on R/A; ll1 19:30 BP 134 / 89; Pulse 76; Resp 16; Pulse Ox 99% on R/A; cm10 19:51 BP 134 / 89; sb4 20:00 BP 146 / 94; Pulse 77; Resp 16; Pulse Ox 100% on R/A; cm10 19:10 Pain Scale: Adult ll1 ED Course: 18:31 Patient arrived in ED. ae5 18:33 Florina Arizmendi PA-C is PHCP. sb4 18:33 Wali Medellin MD is Attending Physician. sb4 18:36 Grazyna Mendenhall RN is Primary Nurse. ll1 18:56 Triage completed. ll1 18:56 Arm band placed on Patient placed in an exam room, on a stretcher. ll1 18:56 Initial lab(s) drawn, by me, sent to lab. EKG done, by ED staff, reviewed by Florina Arizmendi PA-C. Inserted saline lock: 22 gauge in right antecubital area, using aseptic technique. Blood collected. 19:11 Patient has correct armband on for positive identification. Bed in low position. ll1 Provided Education on: ER process and procedures. . Client placed on continuous cardiac and pulse oximetry monitoring. NIBP monitoring applied. threat monitoring analyst on. 19:12 Patient maintains SpO2 saturation greater than 95% on room air. ll1 19:21 XRAY Chest (1 view) In Process Unspecified. EDMS 19:29 Primary Nurse role handed off by Grazyna Mendenhall RN cm10 19:29 Lindsey Whitaker, SANNA is Primary Nurse. cm10 19:32 Patient moved back from CT. cm10 19:39 Head Brain Wo Cont CT In Process Unspecified. EDMS 19:49 Shaka Bay MD is Referral Physician. sb4 20:16 No provider procedures requiring assistance completed. IV discontinued, intact, cm10 bleeding controlled, No redness/swelling at site. Pressure dressing applied. Administered Medications: 19:30 Drug: Aspirin PO Chewable Tablet 324 mg PO once; 81 mg tablets x 4 Route: PO; cm10 20:16 Follow up: Response: No adverse reaction cm10 Medication: 19:11 VIS not applicable for this client. 1 Outcome: 19:49 Discharge ordered by . sb4 20:16 Discharged to home ambulatory, cm10 20:16 Condition: good 20:16 Discharge instructions given to patient, Instructed on discharge instructions, follow up and referral plans. Demonstrated understanding of instructions, follow-up care, 20:16 Patient left the ED. cm10 Signatures: Dispatcher [employer] EDMS Grazyna Mendenhall RN RN ll1 Florina Arizmendi PA-C PA-C sb4 Lindsey Whitaker RN RN cm10 Chantal Alexia ae5
[2023-12-12 20:27] VITALS: TEMP 98.3
[2023-12-12 21:00] VITALS: BP 146/94; O2SAT 100
--- NOTE | 2023-12-13 14:08 | EKG ---
Test Date: 2023-12-12 Test Time: 17:48:19 Electric Motor Mechanic: [employer] MEASUREMENT RESULTS: Intervals: Rate: 74 NM: 154 QRSD: 92 QT: 412 QTc: 457 [place]: P: 50 NM: 154 QRS: 95 T: 46 INTERPRETIVE STATEMENTS: Normal sinus rhythm Normal ECG No previous ECG available for comparison Electronically Signed On 12-13-23 14:05:22 CDT by Shaka [place]
== END ==
LOC: ER 18:28
DX: R07.9 Chest pain, unspecified (principal); R20.0 Anesthesia of skin
CPT/HCPCS: 36415; 70450; 71045; 80048; 80076; 83735; 83880; 84484; 85025; 85610; 93005; 99285